=== PATIENT | female | born 1930 | race Caucasian/White ===

== ENCOUNTER 2016-09-13 21:27 | Inpatient (IN) | payer OTHER ==
[~2016-09-13] VITALS: Ht 160 cm; Wt 50.0 kg
[~2016-09-13 21:27] MED LIST: ALDACTONE25 MG PO; ASCORBIC ACID500 M3 PO; ASPIR 8181 M1 PO; ASPIRIN81 M2 PO; BISOPROLOL FUMA10 MG PO; CATAPRES0.1 MG PO; CENTRUM SILV1 TABLET PO; CILOSTAZOL50 MG PO; CIPRO500 MG PO; CLONIDINE HCL0.1 MG PO; CRANBERRY500 M1 PO; CRANBERRY500 M3 PO; CREON 241 CAPSULE PO; CYANOCOBALAM1000 MCG PO; EVISTA60 MG PO; EXTRA STRENGTH500 M1 PO; FLAGYL500 MG PO; FLUOXETINE HCL10 MG PO; HUMALOG100 UNIT/2 SC; HUMULIN 70100 UNIT/2 SC; HYDROXYCHLOROQ200 MG PO; LANTUS 10100 UNITS/ SC; LANTUS 3 M100 UNITS1 SC; LO-DOSE ASPIRIN81 M1 PO; LOVASTATIN20 MG PO; MAGNESIUM DR64 M1 PO; MAVIK2 MG PO; MAVIK4 MG PO; MEVACOR20 MG PO; MYRBETRIQ25 MG PO; OMEPRAZOLE40 M1 PO; PLETAL PO; PLETAL50 MG PO; PREDNISONE5 MG PO; PROZAC10 MG PO; SPIRONOLACTONE25 MG PO; TYLENOL EXTRA500 MG PO; URSO250 MG PO; URSODIOL250 MG PO; VITAMIN B-12500 MC3 PO; VITAMIN B-12500 MC5 SL; VITAMIN B122500 MCG PO; VITAMIN D31000 UNI2 PO; VITAMIN D400 UNIT PO; XANAX0.5 MG PO; ZIAC 10/6.251 TABLET PO
[2016-09-13 23:35] LABS: BASOPHIL COUNT 0.1 K/uL (0-0.1); EOSINOPHIL (%) 1.4 % (0-5); EOSINOPHIL COUNT 0.2 K/uL (0-0.3); HEMATOCRIT 35.8 % (36.0-46.0); IMMATURE GRANULOCYTE (%) 0.8 % (0.0-0.7); IMMATURE GRANULOCYTE COUNT 0.1 K/uL; INSTRUMENT ABS NEUTROPHIL CT 8.9 K/uL; LYMPHOCYTE COUNT 1.5 K/uL (1.0-2.8); MCH 31.8 PG (29.0-34.0); MCHC 34.1 G/DL (30.0-36.0); MCV 93.2 FL (83-99); MEAN PLAT.VOLUME 9.2 uM^3 (9.5-12.4); MONOCYTE (%) 10.1 % (3-12); MONOCYTE COUNT 1.2 K/uL (0-0.8); NEUTROPHIL (%) 74.8 % (45-76); NEUTROPHIL COUNT 8.9 K/uL (1.8-6.4); PLATELET COUNT 222 K/uL (156-360); RBC DIS.WIDTH-CV 12.3 % (11.8-14.6); RBC DIS.WIDTH-SD 42.5 % (39-53); RED BLOOD COUNT 3.84 M/uL (3.80-5.20); WHITE BLOOD COUNT 11.8 K/uL (4.1-10.2)
[2016-09-13 23:58] LABS: CHLORIDE 99 mEq/L (99-109); POTASSIUM 4.3 mEq/L (3.7-5.4)
[2016-09-13 23:59] LABS: SODIUM 135 mEq/L (136-147)
[2016-09-14 00:01] LABS: GLUCOSE 164 mg/dL (70-99)
[2016-09-14 00:02] LABS: ANION GAP 14 MEQ/L (2-14)
[2016-09-14 00:03] LABS: TOTAL BILIRUBIN 0.5 mg/dL (0.0-1.0)
[2016-09-14 00:04] LABS: ALKALINE PHOSPHATASE 54 IU/L (3-129); GFR ESTIMATE (CALCULATED) 35 mL/min/
[2016-09-14 00:06] LABS: UREA NITROGEN (BUN) 46 mg/dL (9-23)
[2016-09-14 00:09] LABS: TROP-I INTERPRETATION NEGATIVE; TROPONIN-I 0.06 ng/mL (0.0-0.30)
[2016-09-14 02:28] LABS: POINT-OF-CARE METER ID UU14100415; POINT-OF-CARE USER ID HMLKAV
[2016-09-14 07:21] LABS: POINT-OF-CARE METER ID UU14100415
[2016-09-14 07:21] LABS: EOSINOPHIL (%) 0.1 % (0-5); HEMATOCRIT 32.3 % (36.0-46.0); IMMATURE GRANULOCYTE (%) 0.8 % (0.0-0.7); IMMATURE GRANULOCYTE COUNT 0.1 K/uL; INSTRUMENT ABS NEUTROPHIL CT 13.4 K/uL; LYMPHOCYTE COUNT 0.7 K/uL (1.0-2.8); MCH 32.9 PG (29.0-34.0); MCV 94.2 FL (83-99); MEAN PLAT.VOLUME 9.8 uM^3 (9.5-12.4); MONOCYTE (%) 10.5 % (3-12); MONOCYTE COUNT 1.7 K/uL (0-0.8); NEUTROPHIL (%) 84.2 % (45-76); NEUTROPHIL COUNT 13.4 K/uL (1.8-6.4); PLATELET COUNT 197 K/uL (156-360); RBC DIS.WIDTH-CV 12.4 % (11.8-14.6); RED BLOOD COUNT 3.43 M/uL (3.80-5.20)
[2016-09-14 07:28] LABS: WHITE BLOOD COUNT 15.9 K/uL (4.1-10.2)
[2016-09-14 07:45] LABS: TROP-I INTERPRETATION NEGATIVE
[2016-09-14] MEDS ORDERED: B-121000 MC2 PO (08:22)
[2016-09-14] MEDS ORDERED: PREDNISONE1 MG PO (08:27)
[2016-09-14] MEDS ORDERED: PROZAC10 MG PO (08:30)
[2016-09-14] MEDS ORDERED: MAGNESIUM250 MG PO (08:31)
[2016-09-14] MEDS ORDERED: ZIAC 5/6.251 TABLET PO (08:31)
[2016-09-14 11:16] LABS: POINT-OF-CARE METER ID UU14100415
[2016-09-14 12:08] VITALS: BP 152/68
[2016-09-14 13:28] LABS: TROP-I INTERPRETATION NEGATIVE; TROPONIN-I 0.12 ng/mL (0.0-0.30)
[2016-09-14 15:47] VITALS: BP 150/72; BP 201/85
[2016-09-14 20:18] VITALS: BP 166/77
[2016-09-14 23:29] VITALS: BP 161/74
[2016-09-15 02:02] LABS: ADD MIUA? YES; BILIRUBIN NEGATIVE; BLOOD NEGATIVE; COLOR YELLOW ((YELLOW)); GLUCOSE (STRIP) >=500; KETONES 5; LEUKOCYTES TRACE; NITRITE NEGATIVE; PROTEIN (STRIP) NEGATIVE; SPECIFIC GRAVITY 1.013 (1.000-1.030); UROBILINOGEN 0.2 MG/DL (0.2-1.0)
[2016-09-15 02:07] LABS: BACTERIA RARE /HPF; EPITHELIAL CELLS RARE /HPF; MUCUS TRACE /LPF; RED BLOOD CELLS 0-5 /HPF (0-5); UCUL ADDED? NO; WHITE BLOOD CELLS 0-5 /HPF (0-5)
[2016-09-15 04:01] VITALS: BP 179/76
[2016-09-15 06:27] LABS: POINT-OF-CARE METER ID UU14188577
[2016-09-15 07:41] LABS: HEMATOCRIT 32.4 % (36.0-46.0); MCH 32.2 PG (29.0-34.0); MCV 94.7 FL (83-99); MEAN PLAT.VOLUME 9.6 uM^3 (9.5-12.4); PLATELET COUNT 189 K/uL (156-360); RBC DIS.WIDTH-CV 12.6 % (11.8-14.6); RBC DIS.WIDTH-SD 43.5 % (39-53); RED BLOOD COUNT 3.42 M/uL (3.80-5.20); WHITE BLOOD COUNT 13.9 K/uL (4.1-10.2)
[2016-09-15 07:54] VITALS: BP 140/69
[2016-09-15 08:37] LABS: ANION GAP 14 MEQ/L (2-14); CHLORIDE 98 MEQ/L (99-109); GFR ESTIMATE (CALCULATED) 50 mL/min/; POTASSIUM 4.6 MEQ/L (3.7-5.4); SAMPLE HEMOLYSIS CHECK 0; SAMPLE ICTERIC CHECK 0; SAMPLE LIPEMIA CHECK 0; SODIUM 132 MEQ/L (136-147); UREA NITROGEN (BUN) 35 mg/dL (9-23)
[2016-09-15 08:40] LABS: GLUCOSE 365 mg/dL (70-99)
[2016-09-15 11:27] VITALS: BP 168/78
[2016-09-15] MEDS ORDERED: AMOX TR-K CLV1 EAC3 PO (13:32)
[2016-09-15 16:39] VITALS: BP 174/72
[2016-09-15 19:46] VITALS: BP 18/58
[2016-09-15 23:44] VITALS: BP 113/55
[2016-09-16 04:11] VITALS: BP 119/56
[2016-09-16 04:50] VITALS: BP 126/58
[2016-09-16 06:04] LABS: POINT-OF-CARE METER ID UU14149397
[2016-09-16 08:00] VITALS: BP 11/67; BP 151/67
[2016-09-16 08:41] LABS: HEMATOCRIT 28.2 % (36.0-46.0); MCH 32.3 PG (29.0-34.0); MCHC 34.8 G/DL (30.0-36.0); MCV 93.1 FL (83-99); MEAN PLAT.VOLUME 9.5 uM^3 (9.5-12.4); PLATELET COUNT 164 K/uL (156-360); RBC DIS.WIDTH-CV 12.6 % (11.8-14.6); RBC DIS.WIDTH-SD 42.9 % (39-53); RED BLOOD COUNT 3.03 M/uL (3.80-5.20); WHITE BLOOD COUNT 12.1 K/uL (4.1-10.2)
[2016-09-16 09:00] LABS: ANION GAP 10 MEQ/L (2-14); CHLORIDE 100 MEQ/L (99-109); GFR ESTIMATE (CALCULATED) 45 mL/min/; GLUCOSE 202 mg/dL (70-99); POTASSIUM 3.9 MEQ/L (3.7-5.4); SAMPLE HEMOLYSIS CHECK 0; SAMPLE ICTERIC CHECK 0; SAMPLE LIPEMIA CHECK 0; SODIUM 130 MEQ/L (136-147); UREA NITROGEN (BUN) 38 mg/dL (9-23)
[2016-09-16] MEDS ORDERED: AMOX TR-K CLV1 EAC3 PO (11:08)
[2016-09-16 11:40] VITALS: BP 147/68
[2016-09-16 11:47] LABS: POINT-OF-CARE METER ID UU14149397
[2016-09-16] MEDS ORDERED: MAVIK2 MG PO (14:27)
[2016-09-16] MEDS ORDERED: PROZAC10 MG PO (14:27)
[2016-09-16] MEDS ORDERED: ZIAC 5/6.251 TABLET PO (14:27)
[2016-09-16] MEDS ORDERED: OMEPRAZOLE40 M1 PO (14:27)
[2016-09-16] MEDS ORDERED: HYDROXYCHLOROQ200 MG PO (14:27)
[2016-09-16] MEDS ORDERED: URSO250 MG PO (14:27)
[2016-09-16] MEDS ORDERED: XANAX0.5 MG PO (14:27)
[2016-09-16] MEDS ORDERED: LANTUS 3 M100 UNITS1 SC (14:27)
[2016-09-16] MEDS ORDERED: EVISTA60 MG PO (14:27)
[2016-09-16] MEDS ORDERED: CILOSTAZOL50 MG PO (14:27)
[2016-09-16] MEDS ORDERED: HUMALOG100 UNIT/2 SC (14:27)
[2016-09-16] MEDS ORDERED: PREDNISONE1 MG PO (14:27)
[2016-09-16] MEDS ORDERED: PREDNISONE5 MG PO (14:27)
[2016-09-16] MEDS ORDERED: CREON 241 CAPSULE PO (14:27)
[2016-09-16 16:18] VITALS: BP 140/63
[2016-09-16 17:19] LABS: POINT-OF-CARE METER ID UU14149397
[2016-09-18 10:23] LABS: POINT-OF-CARE METER ID UU14188577
[2016-09-18 10:23] LABS: POINT-OF-CARE METER ID UU14188577
[2016-09-18 10:23] LABS: POINT-OF-CARE METER ID UU14149397
== END 2016-09-16 20:49 | disposition home or self-care (01) | DRG 158 ==
LOC: EME 21:27 → EDOF 09-14 03:53 → 3EAST 09-14 11:42
PROVIDERS: Emergency Medicine; Hospitalist; Internal Medicine; Physician Assistant
PROC: 0CQ0XZZ Repair Upper Lip, External Approach (ICD-10-PCS; principal; 2016-09-14)
DX: S02.40DA Maxillary fracture, left side, initial encounter for closed fracture (principal); S42.231A 3-part fracture of surgical neck of right humerus, initial encounter for closed fracture; W18.30XA Fall on same level, unspecified, initial encounter; S51.812A Laceration without foreign body of left forearm, initial encounter; Y93.89 Activity, other specified; Y92.010 Kitchen of single-family (private) house as the place of occurrence of the external cause; N17.9 Acute kidney failure, unspecified; R55 Syncope and collapse; M35.3 Polymyalgia rheumatica; I10 Essential (primary) hypertension; E78.5 Hyperlipidemia, unspecified; K58.9 Irritable bowel syndrome, unspecified; M81.0 Age-related osteoporosis without current pathological fracture; E10.65 Type 1 diabetes mellitus with hyperglycemia; F41.9 Anxiety disorder, unspecified; S01.511A Laceration without foreign body of lip, initial encounter; I27.2 Other secondary pulmonary hypertension; I45.2 Bifascicular block; R64 Cachexia; Z66 Do not resuscitate; E87.1 Hypo-osmolality and hyponatremia
CPT/HCPCS: 70450; 70486; 71010; 72125; 73030; 73060; 80048; 80053; 81003; 82948; 84484; 85025; 85027; 93005; 93880; 94799; 99281; 99285; G0378; G8978 GP CK; G8979 CJ; G8987 GO CM; G8988 GO CK; J0295; J1815; J2270; J2405; J7030; J7050; J7512

== ENCOUNTER 2016-09-22 14:51 | Inpatient (IN) | payer OTHER ==
[~2016-09-22] VITALS: Ht 160 cm; Wt 49.0 kg
[~2016-09-22 14:51] MED LIST changes: +AMOX TR-K CLV1 EAC3 PO; +B-121000 MC2 PO; +MAGNESIUM250 MG PO; +PREDNISONE1 MG PO; +ZIAC 5/6.251 TABLET PO
[2016-09-22 15:31] LABS: HEMATOCRIT 28.3 % (36.0-46.0); MCH 32.3 PG (29.0-34.0); MCHC 34.6 G/DL (30.0-36.0); MCV 93.4 FL (83-99); MEAN PLAT.VOLUME 9.5 uM^3 (9.5-12.4); RBC DIS.WIDTH-CV 13.1 % (11.8-14.6); RBC DIS.WIDTH-SD 44.3 % (39-53); RED BLOOD COUNT 3.03 M/uL (3.80-5.20); WHITE BLOOD COUNT 13.7 K/uL (4.1-10.2)
[2016-09-22 15:32] LABS: PLATELET COUNT 302 K/uL (156-360)
[2016-09-22 15:37] LABS: CHLORIDE 92 mEq/L (99-109); POTASSIUM 5.2 mEq/L (3.7-5.4); SODIUM 124 mEq/L (136-147)
[2016-09-22 15:39] LABS: GLUCOSE 512 mg/dL (70-99)
[2016-09-22 15:40] LABS: ANION GAP 10 MEQ/L (2-14); INTER. NORMALIZED RATIO 1.1; PROTHROMBIN TIME 10.7 (9.2-11.2); PTT 21.9 (25-32)
[2016-09-22 15:42] LABS: GFR ESTIMATE (CALCULATED) 22 mL/min/
[2016-09-22 15:45] LABS: UREA NITROGEN (BUN) 56 mg/dL (9-23)
[2016-09-22 17:29] LABS: ADD MIUA? YES; BILIRUBIN NEGATIVE; BLOOD NEGATIVE; COLOR YELLOW ((YELLOW)); GLUCOSE (STRIP) >=500; KETONES 20; LEUKOCYTES NEGATIVE; NITRITE NEGATIVE; PROTEIN (STRIP) NEGATIVE; SPECIFIC GRAVITY 1.017 (1.000-1.030); UROBILINOGEN 0.2 MG/DL (0.2-1.0)
[2016-09-22 17:34] LABS: BACTERIA NONE SEEN /HPF; EPITHELIAL CELLS RARE /HPF; HYALINE CASTS 0-5 /LPF; MUCUS TRACE /LPF; RED BLOOD CELLS 0-5 /HPF (0-5); WHITE BLOOD CELLS 0-5 /HPF (0-5)
[2016-09-22 18:16] LABS: POINT-OF-CARE METER ID UU13113702
[2016-09-22 19:35] LABS: CHLORIDE 97 mEq/L (99-109); POTASSIUM 4.6 mEq/L (3.7-5.4); SODIUM 128 mEq/L (136-147)
[2016-09-22 19:37] LABS: GLUCOSE 258 mg/dL (70-99)
[2016-09-22 19:39] LABS: ANION GAP 6 MEQ/L (2-14); TOTAL BILIRUBIN 0.7 mg/dL (0.0-1.0)
[2016-09-22 19:41] LABS: ALKALINE PHOSPHATASE 48 IU/L (3-129); GFR ESTIMATE (CALCULATED) 28 mL/min/
[2016-09-22 19:42] LABS: UREA NITROGEN (BUN) 51 mg/dL (9-23)
[2016-09-22] MEDS ORDERED: AMOXICILLIN500 MG PO (20:57)
[2016-09-22] MEDS ORDERED: CILOSTAZOL50 MG PO (20:59)
[2016-09-22] MEDS ORDERED: MAGNESIUM250 MG PO (21:05)
[2016-09-22] MEDS ORDERED: SPIRONOLACTONE25 MG PO (21:05)
[2016-09-22 21:39] VITALS: BP 124/57
[2016-09-22 22:01] LABS: POINT-OF-CARE METER ID UU14188625
[2016-09-22 23:42] VITALS: BP 123/57
[2016-09-23 03:52] VITALS: BP 125/50
[2016-09-23 08:00] VITALS: BP 130/66
[2016-09-23 08:58] LABS: HEMATOCRIT 25.6 % (36.0-46.0); MCH 32.2 PG (29.0-34.0); MCHC 34.4 G/DL (30.0-36.0); MCV 93.8 FL (83-99); MEAN PLAT.VOLUME 9.2 uM^3 (9.5-12.4); PLATELET COUNT 284 K/uL (156-360); RBC DIS.WIDTH-CV 13.5 % (11.8-14.6); RBC DIS.WIDTH-SD 45.6 % (39-53); RED BLOOD COUNT 2.73 M/uL (3.80-5.20); WHITE BLOOD COUNT 10.8 K/uL (4.1-10.2)
[2016-09-23 09:22] LABS: CHLORIDE 102 mEq/L (99-109); POTASSIUM 4.3 mEq/L (3.7-5.4); SODIUM 132 mEq/L (136-147)
[2016-09-23 09:23] LABS: GLUCOSE 244 mg/dL (70-99)
[2016-09-23 09:25] LABS: ANION GAP 6 MEQ/L (2-14)
[2016-09-23 09:27] LABS: GFR ESTIMATE (CALCULATED) 38 mL/min/
[2016-09-23 09:28] LABS: UREA NITROGEN (BUN) 38 mg/dL (9-23)
[2016-09-23 11:44] LABS: POINT-OF-CARE METER ID UU14174225
[2016-09-23 13:20] VITALS: BP 129/67
[2016-09-23 16:37] VITALS: BP 140/82
[2016-09-23 19:06] VITALS: BP 146/74
[2016-09-23 21:38] LABS: POINT-OF-CARE METER ID UU14188625
[2016-09-24] VITALS: BP 118/50
[2016-09-24 03:57] VITALS: BP 129/63
[2016-09-24 07:26] LABS: HEMATOCRIT 25.2 % (36.0-46.0); MCH 32.3 PG (29.0-34.0); MCHC 34.1 G/DL (30.0-36.0); MCV 94.7 FL (83-99); MEAN PLAT.VOLUME 9.2 uM^3 (9.5-12.4); PLATELET COUNT 291 K/uL (156-360); RBC DIS.WIDTH-CV 13.5 % (11.8-14.6); RBC DIS.WIDTH-SD 46.7 % (39-53); RED BLOOD COUNT 2.66 M/uL (3.80-5.20); WHITE BLOOD COUNT 9.1 K/uL (4.1-10.2)
[2016-09-24 07:43] VITALS: BP 139/65
[2016-09-24 07:55] LABS: ANION GAP 7 MEQ/L (2-14); CHLORIDE 104 MEQ/L (99-109); GFR ESTIMATE (CALCULATED) 56 mL/min/; MAGNESIUM 1.6 mg/dl (1.3-2.7); POTASSIUM 4.3 MEQ/L (3.7-5.4); SAMPLE HEMOLYSIS CHECK 0; SAMPLE ICTERIC CHECK 0; SAMPLE LIPEMIA CHECK 0; SODIUM 135 MEQ/L (136-147); UREA NITROGEN (BUN) 25 mg/dL (9-23)
[2016-09-24 07:56] LABS: GLUCOSE 118 mg/dL (70-99)
[2016-09-24 11:16] VITALS: BP 143/70
[2016-09-24 15:25] VITALS: BP 128/60
[2016-09-24 16:22] LABS: POINT-OF-CARE METER ID UU13113702
[2016-09-24 23:55] VITALS: BP 153/59
[2016-09-25 08:03] VITALS: BP 117/69
[2016-09-25 16:01] VITALS: BP 165/73
[2016-09-25 21:21] VITALS: BP 138/74
[2016-09-25 21:32] LABS: POINT-OF-CARE METER ID UU14188625
[2016-09-26 07:14] LABS: IRON 46 MCG/DL (35-150)
[2016-09-26 07:29] VITALS: BP 134/58
[2016-09-26 11:26] LABS: POINT-OF-CARE METER ID UU14188625
[2016-09-26] MEDS ORDERED: LEVEMIR100 UNIT/2 SC (12:30)
== END 2016-09-26 15:28 | DRG 683 ==
LOC: EME 14:51 → EDOF 18:35 → 5SOUTH 18:35
PROVIDERS: Emergency Medicine; Internal Medicine; Internal Medicine Nephrology
DX: N17.9 Acute kidney failure, unspecified (principal); E11.65 Type 2 diabetes mellitus with hyperglycemia; E87.1 Hypo-osmolality and hyponatremia; E86.0 Dehydration; R29.6 Repeated falls; E78.5 Hyperlipidemia, unspecified; M35.3 Polymyalgia rheumatica; K86.1 Other chronic pancreatitis; I10 Essential (primary) hypertension; F41.9 Anxiety disorder, unspecified; G43.909 Migraine, unspecified, not intractable, without status migrainosus; S42.211D Unspecified displaced fracture of surgical neck of right humerus, subsequent encounter for fracture with routine healing; W19.XXXD Unspecified fall, subsequent encounter; S02.40DD Maxillary fracture, left side, subsequent encounter for fracture with routine healing; I27.2 Other secondary pulmonary hypertension; Z87.440 Personal history of urinary (tract) infections; R64 Cachexia; D64.9 Anemia, unspecified
CPT/HCPCS: 36415; 71010; 80048; 80053; 81003; 82010; 82607; 82746; 82948; 83540; 83605; 83735; 84466; 85027; 85610; 85730; 87086; 92610 GN; 97530 GO; J1644; J1815; J2405; J7030; J7512

== ENCOUNTER 2016-12-28 22:43 | Inpatient (IN) | payer OTHER ==
[~2016-12-28] VITALS: Ht 160 cm; Wt 48.6 kg
[~2016-12-28 22:43] MED LIST changes: +AMOXICILLIN500 MG PO; +LEVEMIR100 UNIT/2 SC
[2016-12-28 23:00] LABS: POINT-OF-CARE METER ID UU13113702
[2016-12-28 23:24] LABS: HEMATOCRIT 31.4 % (36.0-46.0); MCH 31.6 PG (29.0-34.0); MCHC 34.7 G/DL (30.0-36.0); MEAN PLAT.VOLUME 9.5 uM^3 (9.5-12.4); PLATELET COUNT 213 K/uL (156-360); RBC DIS.WIDTH-CV 12.4 % (11.8-14.6); RBC DIS.WIDTH-SD 41.2 % (39-53); RED BLOOD COUNT 3.45 M/uL (3.80-5.20)
[2016-12-28 23:35] LABS: CHLORIDE 99 mEq/L (99-109); SODIUM 130 mEq/L (136-147)
[2016-12-28 23:38] LABS: ANION GAP 16 MEQ/L (2-14)
[2016-12-28 23:41] LABS: GFR ESTIMATE (CALCULATED) 35 mL/min/; UREA NITROGEN (BUN) 25 mg/dL (9-23)
[2016-12-28 23:45] LABS: TROP-I INTERPRETATION NEGATIVE
[2016-12-28 23:52] LABS: GLUCOSE 456 mg/dL (70-99)
[2016-12-29] VITALS (14 sets, daily range): BP systolic 99–165; BP diastolic 49–94
[2016-12-29 01:58] LABS: CARBON DIOXIDE (BICARBONATE) 20.4 MEQ/L (20-31)
[2016-12-29 04:36] LABS: CARBON DIOXIDE (BICARBONATE) 17.5 MEQ/L (20-31)
[2016-12-29 05:09] LABS: POINT-OF-CARE METER ID UU13113702
[2016-12-29 06:00] LABS: POINT-OF-CARE METER ID UU13113702
[2016-12-29] MEDS ORDERED: ASPIRIN81 M2 PO (06:54)
[2016-12-29] MEDS ORDERED: FEOSOL325 MG PO (06:56)
[2016-12-29] MEDS ORDERED: METFORMIN HCL1000 MG PO (06:58)
[2016-12-29 07:28] LABS: POINT-OF-CARE METER ID UU13113702
[2016-12-29 08:34] LABS: POINT-OF-CARE METER ID UU13113702
[2016-12-29 08:45] LABS: CHLORIDE 106 mEq/L (99-109); POTASSIUM 4.2 mEq/L (3.7-5.4); SODIUM 134 mEq/L (136-147)
[2016-12-29 08:47] LABS: GLUCOSE 365 mg/dL (70-99)
[2016-12-29 08:48] LABS: ANION GAP 7 MEQ/L (2-14)
[2016-12-29 08:51] LABS: GFR ESTIMATE (CALCULATED) 41 mL/min/
[2016-12-29 08:52] LABS: UREA NITROGEN (BUN) 27 mg/dL (9-23)
[2016-12-29 09:36] LABS: POINT-OF-CARE METER ID UU14174217
[2016-12-29 09:39] LABS: Estimated Average Glucose 194 mg/dL (70-123); HEMOGLOBIN A1c (GLYCOHEMOGLOB) 8.4 % HGB (Below 5.7)
[2016-12-29 10:58] LABS: POINT-OF-CARE METER ID UU14174217
[2016-12-29 11:23] LABS: METH RESISTANT S AUREUS PCR POSITIVE (NEGATIVE)
[2016-12-29 11:25] LABS: PROBE CHECK PASS
[2016-12-29 12:01] LABS: POINT-OF-CARE METER ID UU14174217
[2016-12-29 12:10] LABS: POINT-OF-CARE METER ID UU13113702
[2016-12-29 12:44] LABS: ANION GAP 9 MEQ/L (2-14); CHLORIDE 107 MEQ/L (99-109); GFR ESTIMATE (CALCULATED) 56 mL/min/; GLUCOSE 199 mg/dL (70-99); POTASSIUM 4.6 MEQ/L (3.7-5.4); SAMPLE HEMOLYSIS CHECK 0; SAMPLE ICTERIC CHECK 0; SAMPLE LIPEMIA CHECK 0; SODIUM 138 MEQ/L (136-147); UREA NITROGEN (BUN) 27 mg/dL (9-23)
[2016-12-29 13:13] LABS: POINT-OF-CARE METER ID UU14174217
[2016-12-29 13:14] LABS: TROP-I INTERPRETATION POSITIVE
[2016-12-29 14:18] LABS: POINT-OF-CARE METER ID UU14174217
[2016-12-29 16:07] LABS: ANION GAP 9 MEQ/L (2-14); CHLORIDE 105 MEQ/L (99-109); POTASSIUM 4.5 MEQ/L (3.7-5.4); SAMPLE HEMOLYSIS CHECK 0; SAMPLE ICTERIC CHECK 0; SAMPLE LIPEMIA CHECK 0; SODIUM 134 MEQ/L (136-147)
[2016-12-29 16:12] LABS: GFR ESTIMATE (CALCULATED) 56 mL/min/; GLUCOSE 192 mg/dL (70-99); UREA NITROGEN (BUN) 25 mg/dL (9-23)
[2016-12-29 17:42] LABS: POINT-OF-CARE METER ID UU14174217
[2016-12-29 18:04] LABS: TROP-I INTERPRETATION POSITIVE; TROPONIN-I 1.13 ng/mL (0.0-0.30)
[2016-12-29 20:41] LABS: ANION GAP 8 MEQ/L (2-14); CHLORIDE 105 MEQ/L (99-109); POTASSIUM 4.4 MEQ/L (3.7-5.4); SAMPLE HEMOLYSIS CHECK 0; SAMPLE ICTERIC CHECK 0; SAMPLE LIPEMIA CHECK 0; SODIUM 135 MEQ/L (136-147)
[2016-12-29 20:46] LABS: GFR ESTIMATE (CALCULATED) > 59 mL/min/; GLUCOSE 197 mg/dL (70-99); UREA NITROGEN (BUN) 22 mg/dL (9-23)
[2016-12-29 21:46] LABS: POINT-OF-CARE METER ID UU14174217
[2016-12-29 23:51] LABS: POINT-OF-CARE METER ID UU14174217
[2016-12-30] VITALS (16 sets, daily range): BP systolic 102–174; BP diastolic 44–115
[2016-12-30 00:49] LABS: CHLORIDE 107 mEq/L (99-109); POTASSIUM 4.7 mEq/L (3.7-5.4); SODIUM 136 mEq/L (136-147)
[2016-12-30 00:51] LABS: GLUCOSE 163 mg/dL (70-99)
[2016-12-30 00:53] LABS: ANION GAP 8 MEQ/L (2-14)
[2016-12-30 00:55] LABS: GFR ESTIMATE (CALCULATED) 56 mL/min/
[2016-12-30 00:56] LABS: UREA NITROGEN (BUN) 19 mg/dL (9-23)
[2016-12-30 02:20] LABS: POINT-OF-CARE METER ID UU14174217
[2016-12-30] MEDS ORDERED: MYCOSTATIN1 APPLICAT TP (04:55)
[2016-12-30] MEDS ORDERED: ARTIFICIAL TEAR15 M1 BOTH EYES (04:57)
[2016-12-30] MEDS ORDERED: MIRALAX17 GM PO (04:58)
[2016-12-30 05:54] LABS: HEMATOCRIT 35.5 % (36.0-46.0); MCHC 35.2 G/DL (30.0-36.0); MCV 93.7 FL (83-99); MEAN PLAT.VOLUME 9.6 uM^3 (9.5-12.4); PLATELET COUNT 213 K/uL (156-360); RBC DIS.WIDTH-CV 13.4 % (11.8-14.6); RBC DIS.WIDTH-SD 45.9 % (39-53); RED BLOOD COUNT 3.79 M/uL (3.80-5.20); WHITE BLOOD COUNT 15.1 K/uL (4.1-10.2)
[2016-12-30 06:18] LABS: ANION GAP 8 MEQ/L (2-14); CHLORIDE 101 MEQ/L (99-109); POTASSIUM 4.2 MEQ/L (3.7-5.4); SAMPLE HEMOLYSIS CHECK 0; SAMPLE ICTERIC CHECK 0; SAMPLE LIPEMIA CHECK 0; SODIUM 131 MEQ/L (136-147)
[2016-12-30 06:23] LABS: GFR ESTIMATE (CALCULATED) > 59 mL/min/; GLUCOSE 164 mg/dL (70-99); UREA NITROGEN (BUN) 17 mg/dL (9-23)
[2016-12-30 06:29] LABS: TROP-I INTERPRETATION POSITIVE; TROPONIN-I 0.63 ng/mL (0.0-0.30)
[2016-12-30 06:30] LABS: POINT-OF-CARE METER ID UU14174217
[2016-12-30 11:47] LABS: POINT-OF-CARE METER ID UU14174217
[2016-12-30 16:29] LABS: POINT-OF-CARE METER ID UU14162508
[2016-12-30 16:38] LABS: POINT-OF-CARE METER ID UU14174217
[2016-12-30 21:18] LABS: POINT-OF-CARE METER ID UU14162508
[2016-12-31 00:49] VITALS: BP 135/60
[2016-12-31 04:23] VITALS: BP 143/72
[2016-12-31 06:19] LABS: POINT-OF-CARE METER ID UU14162508
[2016-12-31 06:37] LABS: ANION GAP 8 MEQ/L (2-14); CHLORIDE 102 MEQ/L (99-109); POTASSIUM 4.4 MEQ/L (3.7-5.4); SAMPLE HEMOLYSIS CHECK 0; SAMPLE ICTERIC CHECK 0; SAMPLE LIPEMIA CHECK 0; SODIUM 131 MEQ/L (136-147)
[2016-12-31 06:42] LABS: GFR ESTIMATE (CALCULATED) > 59 mL/min/; GLUCOSE 205 mg/dL (70-99); UREA NITROGEN (BUN) 18 mg/dL (9-23)
[2016-12-31 06:47] LABS: EOSINOPHIL (%) 1.1 % (0-5); EOSINOPHIL COUNT 0.1 K/uL (0-0.3); HEMATOCRIT 31.8 % (36.0-46.0); IMMATURE GRANULOCYTE (%) 0.6 % (0.0-0.7); IMMATURE GRANULOCYTE COUNT 0.1 K/uL; INSTRUMENT ABS NEUTROPHIL CT 8.8 K/uL; LYMPHOCYTE COUNT 1.3 K/uL (1.0-2.8); MCH 32.1 PG (29.0-34.0); MCHC 33.6 G/DL (30.0-36.0); MCV 95.5 FL (83-99); MEAN PLAT.VOLUME 9.9 uM^3 (9.5-12.4); MONOCYTE (%) 11.9 % (3-12); MONOCYTE COUNT 1.4 K/uL (0-0.8); NEUTROPHIL (%) 74.8 % (45-76); NEUTROPHIL COUNT 8.8 K/uL (1.8-6.4); PLATELET COUNT 180 K/uL (156-360); RBC DIS.WIDTH-CV 13.2 % (11.8-14.6); RBC DIS.WIDTH-SD 46.7 % (39-53); RED BLOOD COUNT 3.33 M/uL (3.80-5.20); WHITE BLOOD COUNT 11.8 K/uL (4.1-10.2)
[2016-12-31 07:10] VITALS: BP 162/73
[2016-12-31 11:29] LABS: POINT-OF-CARE METER ID UU14162508
[2016-12-31 15:20] VITALS: BP 123/57
[2016-12-31 16:41] LABS: POINT-OF-CARE METER ID UU14162508
[2016-12-31 21:41] LABS: POINT-OF-CARE METER ID UU14162508
[2016-12-31 22:40] LABS: ADD MIUA? NO; BILIRUBIN NEGATIVE; BLOOD NEGATIVE; COLOR STRAW ((YELLOW)); GLUCOSE (STRIP) >=500; KETONES NEGATIVE; LEUKOCYTES NEGATIVE; NITRITE NEGATIVE; PROTEIN (STRIP) NEGATIVE; SPECIFIC GRAVITY 1.006 (1.000-1.030); UCUL ADDED? NO; UROBILINOGEN 0.2 MG/DL (0.2-1.0)
[2017-01-01 00:57] VITALS: BP 163/80
[2017-01-01 06:35] LABS: POINT-OF-CARE METER ID UU14208750
[2017-01-01 06:52] LABS: EOSINOPHIL (%) 1.3 % (0-5); EOSINOPHIL COUNT 0.1 K/uL (0-0.3); HEMATOCRIT 28.3 % (36.0-46.0); IMMATURE GRANULOCYTE (%) 0.7 % (0.0-0.7); IMMATURE GRANULOCYTE COUNT 0.1 K/uL; LYMPHOCYTE COUNT 1.1 K/uL (1.0-2.8); MCH 32.9 PG (29.0-34.0); MCV 91.3 FL (83-99); MEAN PLAT.VOLUME 10.2 uM^3 (9.5-12.4); MONOCYTE (%) 9.2 % (3-12); MONOCYTE COUNT 0.9 K/uL (0-0.8); NEUTROPHIL (%) 78.2 % (45-76); PLATELET COUNT 186 K/uL (156-360); RBC DIS.WIDTH-CV 13.2 % (11.8-14.6); RBC DIS.WIDTH-SD 43.6 % (39-53); WHITE BLOOD COUNT 10.2 K/uL (4.1-10.2)
[2017-01-01 07:12] LABS: ANION GAP 8 MEQ/L (2-14); CHLORIDE 103 MEQ/L (99-109); GFR ESTIMATE (CALCULATED) > 59 mL/min/; GLUCOSE 130 mg/dL (70-99); SAMPLE HEMOLYSIS CHECK 0; SAMPLE ICTERIC CHECK 0; SAMPLE LIPEMIA CHECK 0; SODIUM 134 MEQ/L (136-147); UREA NITROGEN (BUN) 17 mg/dL (9-23)
[2017-01-01 08:35] VITALS: BP 172/81
[2017-01-01 11:35] LABS: POINT-OF-CARE METER ID UU14208750
[2017-01-01] MEDS ORDERED: LEVOFLOXACIN250 MG PO (13:59)
[2017-01-01] MEDS ORDERED: ATORVASTATIN CA80 MG PO (14:00)
[2017-01-01] MEDS ORDERED: LOPRESSOR25 MG PO (14:01)
[2017-01-01] MEDS ORDERED: LISINOPRIL20 MG PO (14:03)
[2017-01-01] MEDS ORDERED: LEVEMIR100 UNIT/2 SC (14:07)
== END 2017-01-01 15:54 | disposition home or self-care (01) | DRG 280 ==
LOC: EME 22:43 → EDOF 12-29 01:58 → ENRESERV 12-29 01:59 → CANRESERV 12-29 02:43 → ENRESERV 12-29 02:43 → 4WEST 12-29 08:09 → 2EAST 12-29 08:09 → EDOF 12-29 08:09 → ENRESERV 12-29 08:40 → CANRESERV 12-29 08:40 → ENRESERV 12-29 08:43 → EDOF 12-29 08:53 → 4WEST 12-29 09:17 → ENRESERV 12-30 12:20 → 2EAST 12-30 16:08
PROVIDERS: Emergency Medicine; Family Medicine; Internal Medicine Cardiovascular Disease; Internal Medicine Pulmonary Disease; Specialist
DX: I21.4 Non-ST elevation (NSTEMI) myocardial infarction (principal); E10.10 Type 1 diabetes mellitus with ketoacidosis without coma; N17.9 Acute kidney failure, unspecified; E87.1 Hypo-osmolality and hyponatremia; I10 Essential (primary) hypertension; E78.5 Hyperlipidemia, unspecified; I48.91 Unspecified atrial fibrillation; I45.10 Unspecified right bundle-branch block; F03.90 Unspecified dementia, unspecified severity, without behavioral disturbance, psychotic disturbance, mood disturbance, and anxiety; K21.9 Gastro-esophageal reflux disease without esophagitis; M35.3 Polymyalgia rheumatica; D64.9 Anemia, unspecified; F41.9 Anxiety disorder, unspecified; F32.9 Major depressive disorder, single episode, unspecified; R29.6 Repeated falls; Z79.4 Long term (current) use of insulin; Z79.82 Long term (current) use of aspirin; Z83.3 Family history of diabetes mellitus
CPT/HCPCS: 71010; 71020; 71275; 74177; 80048; 80048 91; 81003; 82010; 82803; 82948; 83036; 83880; 84100; 84484; 85025; 85027; 85379; 85610; 85730; 87641; 93005; J1644; J1650; J1815; J2270; J2405; J7030; J7050; J7120; J7512; S0028

== ENCOUNTER 2017-12-02 11:03 | Observation (INO) | payer OTHER ==
[~2017-12-02] VITALS: Ht 160 cm; Wt 51.6 kg
[~2017-12-02 11:03] MED LIST changes: +ARTIFICIAL TEAR15 M1 BOTH EYES; +ATORVASTATIN CA80 MG PO; +FEOSOL325 MG PO; +LEVOFLOXACIN250 MG PO; +LISINOPRIL20 MG PO; +LOPRESSOR25 MG PO; +METFORMIN HCL1000 MG PO; +MIRALAX17 GM PO; +MYCOSTATIN1 APPLICAT TP
[2017-12-02 12:14] LABS: HEMATOCRIT 41.1 % (36.0-46.0); HEMOGLOBIN 14.2 G/DL (11.9-15.5); MCH 33.6 PG (29.0-34.0); MCHC 34.5 G/DL (30.0-36.0); MCV 97.2 FL (83-99); PLATELET COUNT 222 K/uL (156-360); RBC DIS.WIDTH-SD 42.9 % (39-53); RED BLOOD COUNT 4.23 M/uL (3.80-5.20); WHITE BLOOD COUNT 15.3 K/uL (4.1-10.2)
[2017-12-02 12:23] LABS: CHLORIDE 108 mEq/L (99-109); POTASSIUM 4.6 mEq/L (3.7-5.4); SODIUM 141 mEq/L (136-147)
[2017-12-02 12:25] LABS: GLUCOSE 60 mg/dL (70-99)
[2017-12-02 12:29] LABS: CREATININE 1.5 mg/dL (0.6-1.3); GFR ESTIMATE (CALCULATED) 35 mL/min/
[2017-12-02 12:30] LABS: UREA NITROGEN (BUN) 35 mg/dL (9-23)
[2017-12-02 12:36] LABS: TROP-I INTERPRETATION NEGATIVE; TROPONIN-I 0.03 ng/mL (0.0-0.30)
[2017-12-02] MEDS ORDERED: HUMALOG100 UNIT/2 SC (14:25)
[2017-12-02] MEDS ORDERED: RAYOS1 MG PO (14:28)
[2017-12-02] MEDS ORDERED: EVISTA60 MG PO (14:29)
[2017-12-02] MEDS ORDERED: URSO250 MG PO (14:29)
[2017-12-02] MEDS ORDERED: LANTUS 3 M100 UNITS1 SC (14:30)
[2017-12-02] MEDS ORDERED: CATAPRES0.1 MG PO (14:30)
[2017-12-02] MEDS ORDERED: CRESTOR10 MG PO (14:31)
[2017-12-02] MEDS ORDERED: MYRBETRIQ50 MG PO (14:31)
[2017-12-02] MEDS ORDERED: MAVIK2 MG PO (14:31)
[2017-12-02] MEDS ORDERED: NITROSTAT0.3 MG SL (14:31)
[2017-12-02] MEDS ORDERED: PROLIA60 MG/1 ML SC (14:35)
[2017-12-02 17:09] LABS: APPEARANCE CLEAR ((CLEAR)); BILIRUBIN NEGATIVE; BLOOD SMALL; COLOR YELLOW ((YELLOW)); GLUCOSE (STRIP) >=500; KETONES NEGATIVE; LEUKOCYTES NEGATIVE; NITRITE NEGATIVE; PROTEIN (STRIP) NEGATIVE; SPECIFIC GRAVITY 1.012 (1.000-1.030); UROBILINOGEN 0.2 MG/DL (0.2-1.0)
[2017-12-02 17:25] LABS: BACTERIA RARE /HPF; EPITHELIAL CELLS RARE /HPF; HYALINE CASTS 0-5 /LPF; MUCUS TRACE /LPF; RED BLOOD CELLS 0-5 /HPF (0-5); UCUL ADDED? NO; WHITE BLOOD CELLS 0-5 /HPF (0-5)
[2017-12-02 18:36] VITALS: BP 195/88
[2017-12-02 20:13] VITALS: BP 167/70
[2017-12-03 00:02] VITALS: BP 138/63
[2017-12-03 05:18] LABS: HEMATOCRIT 38.5 % (36.0-46.0); HEMOGLOBIN 13.2 G/DL (11.9-15.5); MCH 32.8 PG (29.0-34.0); MCHC 34.3 G/DL (30.0-36.0); MCV 95.5 FL (83-99); PLATELET COUNT 216 K/uL (156-360); RBC DIS.WIDTH-SD 42.4 % (39-53); RED BLOOD COUNT 4.03 M/uL (3.80-5.20); WHITE BLOOD COUNT 17.5 K/uL (4.1-10.2)
[2017-12-03 05:23] VITALS: BP 127/84
[2017-12-03 05:37] LABS: CHLORIDE 104 MEQ/L (99-109); CREATININE 1.1 MG/DL (0.6-1.3); GFR ESTIMATE (CALCULATED) 50 mL/min/; POTASSIUM 4.4 MEQ/L (3.7-5.4); SODIUM 135 MEQ/L (136-147); UREA NITROGEN (BUN) 29 mg/dL (9-23)
[2017-12-03 05:55] LABS: GLUCOSE 244 mg/dL (70-99)
[2017-12-03 08:00] VITALS: BP 184/89
[2017-12-03 10:00] VITALS: BP 124/59
[2017-12-03 12:12] VITALS: BP 130/61
[2017-12-03 14:00] VITALS: BP 140/63
[2017-12-03] MEDS ORDERED: CIPRO500 MG PO (15:30)
[2017-12-03] MEDS ORDERED: FLAGYL500 MG PO (15:31)
== END 2017-12-03 18:41 | disposition home or self-care (01) ==
LOC: EME 11:03 → ENRESERV 14:10 → EDOF 14:11 → 4SOUTH 14:11
PROVIDERS: Emergency Medicine; Student in an Organized Health Care Education/Training Program
DX: K52.9 Noninfective gastroenteritis and colitis, unspecified (principal); N17.9 Acute kidney failure, unspecified; I10 Essential (primary) hypertension; E11.649 Type 2 diabetes mellitus with hypoglycemia without coma; Z66 Do not resuscitate; Z79.4 Long term (current) use of insulin; E78.5 Hyperlipidemia, unspecified; I45.10 Unspecified right bundle-branch block; Z83.3 Family history of diabetes mellitus; Z88.2 Allergy status to sulfonamides; Z88.8 Allergy status to other drugs, medicaments and biological substances; Z79.82 Long term (current) use of aspirin
CPT/HCPCS: 71045; 74176; 80048; 81003; 82948; 83605; 84484; 85027; 87040; 87086; 87493; 93005; 99281; 99285; G0378; G8978 GP CJ; G8979 GP CH; G8980 CJ; G8987 GO CI; G8988 GO CH; G8989 GO CH; G8989 GO CI; J0360; J0744; J1644; J1815; J2543; J7042; J7512; S0030